=== PATIENT | female | born 1990 | race Caucasian/White ===

== ENCOUNTER 2025-01-25 10:10 | Emergency (ER) | payer BC, SELFPAY ==
[2025-01-25] VITALS (23 sets, daily range): BP systolic 121–150; BP diastolic 75–91; PULSE 64–100; RESP 13–28; TEMP 36.9; O2SAT 97–100
--- NOTE | 2025-01-25 10:00 | RT.EKG_ITS ---
APPROVED REPORT Exam: Resting ECG Reason for Exam: Chest Pain Patient Location: E HR:84 bpm ECG Measurements Heart Rate 84 AXIS VT 163 P 60 QRSd 86 QRS 45 QT 373 T -2 QTc 442 Conclusion Sinus rhythm 84 normal axis no stemi
--- NOTE | 2025-01-25 10:15 | DI.RAD_ITS ---
Exam(s) XR CHEST 2V PA LATERAL EXAM: XR CHEST 2V PA LATERAL CLINICAL HISTORY: Chest pain TECHNIQUE: 2D digital imaging was performed of the chest. Two images were obtained. PA and lateral views were obtained. COMPARISON: No exams were available for comparison FINDINGS: MEDIASTINUM: Normal. HEART: Normal. PULMONARY VASCULATURE: Normal. LUNGS: Clear. PLEURAL SPACE: No pleural effusion or pneumothorax. BONE:Within normal limits for the patient's age. OTHER FINDINGS:Normal. IMPRESSION: No acute pulmonary findings. DATA REPOSITORY: RADIATION DOSE DELIVERED:
[2025-01-25 10:33] LABS: Abs Immature Grans 0.02 10^3/uL (0.0-0.06); Absolute Basophil Count 0.05 10^3/uL (0.0-0.2); Absolute Lymphocyte Count 1.55 10^3/uL (1.2-3.4); Absolute Monocyte Count 0.36 10^3/uL (0.1-0.8); Absolute Neutrophil Count 3.62 10^3/uL (1.2-6.7); Basophils % 0.9 %; Eosinophils % 1.8 %; HCT 45.8 % (36.0-46.0); HGB 15.4 g/dL (11.2-15.7); Immature Grans % 0.4 %; Lymphocytes % 27.2 %; MCH 29.4 pg (27.0-33.0); MCHC 33.6 % (32.0-36.0); MCV 88 fL (80-95); MPV 10.2 fL (8.0-11.0); Monocytes % 6.3 %; Neutrophils % 63.4 %; Platelet Count 348 10^3/uL (130-400); RBC 5.23 10^6/uL (3.93-5.22); RDW 12.2 % (11.7-14.6); RDW-SD 39.4 fL
--- NOTE | 2025-01-25 10:45 | ED.GENADUL_ITS ---
Discharge Plan Disposition Patient Disposition: Home Condition: Stable Discharge Details Clinical Impression: Chest pain of uncertain etiology Primary Care Provider: Emmie Benjamin ED Provider: Miranda Johnson Home Meds and New Rx's Prescriptions: Continued lisinopril 5 mg tablet 5 mg PO DAILY Discharge Instructions Instructions: Costochondritis, Chest Pain, Adult ED Additional Instructions: At this time there is no evidence for cardiac or heart origin for your chest pain. No evidence for blood clots in your lungs. Negative for COVID flu and RSV. No pneumonia on the x-ray. You are very low risk for any heart disease. This may be anxiety or musculoskeletal. Please take Tylenol or Ibuprofen with food every 4-6 hours as needed for pain and swelling. You are given medication called Toradol and a GI cocktail with Maalox and lidocaine in it which caused some numbing sensation. You may also try to take a daily antacid which you can get [id number] to see if this alleviates the pain. Follow up with primary care provider in 3-5 days. Return to ED sooner if any worsening or concerns. Thank you for allowing us to care for you today. Referrals: Primary Care Provider [Outside] - 1 week Discharge Data Discharge Date/Time-TO BE ENTERED AT DEPARTURE: 01/25/25 12:16 HPI General Mode of arrival: ambulatory . Date/Time Provider Initiated Documentation: 01/25/25 10:11 . Limitations to Documentation: no limitations . Information obtained by: patient and RN notes reviewed . HPI Narrative: 34-year-old female presents to the ER with a chief complaint of midsternal chest pain which began around 8:00 this morning has resolved upon arrival. She was seen recently for similar on Monday for some left shoulder pain reports had a negative workup and discharged home. She has had a recent long trip in a car from [place]. Denies any leg swelling, reports mild URI type symptoms with some sinus drainage. Denies any fever but does report chills no significant cough. She is a non-smoker denies any drugs or alcohol. Denies any nausea vomiting diarrhea. Does have a history of hypertension which she takes 5 mg lisinopril for. Family history includes grandparents with heart disease in their 50s. Related Data Home Medications ?Medication ?Instructions ?Recorded ?Confirmed lisinopril 5 mg tablet 5 mg PO DAILY 01/25/25 01/25/25 Allergies Allergy/AdvReac Type Severity Reaction Status Date / Time No Known Allergies Allergy Verified 01/25/25 10:18 General Stated Complaint: Chest Pain WINSTON: 3 Review of Systems All systems reviewed & are unremarkable except as noted in HPI and below ENT Ears, Nose, Mouth, and Throat: Reports as per HPI and Reports nasal congestion Cardiovascular Cardiovascular: Reports as per HPI, Reports chest pain, Reports chest pain at rest, Denies diaphoresis, Denies leg edema, Denies lightheadedness, Denies radiating jaw, neck or arm pain and Denies dyspnea Respiratory Respiratory: Denies dyspnea Gastrointestinal Gastrointestinal: Denies diarrhea, Denies nausea and Denies vomiting Exam Narrative Exam Narrative: Constitutional: Alert and oriented x3. Appears stated age. Normal body habitus. Head: Normocephalic, no trauma. Eyes: Pupils PERRL, Red reflex noted, EOM's intact. Eyelids symmetrical without lesions, discharge, or swelling. ENT: Bilateral TM's WNL, External ear normal to inspection, no mastoid TTP, swelling, or erythema, Nasal turbinates WNL, no nasal discharge. Normal dentition, Posterior pharynx WNL, no exudate. Chest: RRR, Normal S1, S2, distal pulses intact. Resp: Lungs clear to auscultation bilaterally, no wheezes, rales, or rhonchi. Abdomen: Soft, non-distended, Normoactive bowel sounds all 4 quads. Musculoskeletal: Normal gait, Moves all 4 extremities without difficulty. Skin: No suspicious rashes or lesions. Capillary refill less than 2 sec. Neurologic: Cranial nerves II-XII intact. Alert and oriented x 3. Motor: No deficits noted. Sensory: Intact bilaterally all 4 extremities. Hematologic/Lymphatic: No ecchymosis, no lymphadenopathy. Course Vital Signs Vital signs: Vital Signs Temperature 36.9 C 01/25/25 10:13 Pulse 84 01/25/25 10:13 Respiratory Rate 20 01/25/25 10:13 Blood Pressure 136/75 01/25/25 10:13 Pulse Oximetry 98 01/25/25 10:13 Temperature 36.9 C 01/25/25 10:13 Temperature Source Oral 01/25/25 10:13 Pulse 84 01/25/25 10:13 Respiratory Rate 20 01/25/25 10:13 Respiratory Effort Normal, Non-Labored 01/25/25 10:20 Respiratory Pattern Normal 01/25/25 10:20 Blood Pressure 136/75 01/25/25 10:13 Blood Pressure Position Supine 01/25/25 10:13 Pulse Oximetry 98 01/25/25 10:13 Oxygen Delivery Method Room Air 01/25/25 10:13 Oxygen Flow Rate 0 01/25/25 10:13 Pain Level 2 01/25/25 10:13 Medical Decision Making 34-year-old female presents to the ER with a chief complaint of midsternal chest pain which began around 8:00 this morning has resolved upon arrival. She was seen recently for similar on Monday for some left shoulder pain reports had a negative workup and discharged home. She has had a recent long trip in a car from [place]. Denies any leg swelling, reports mild URI type symptoms with some sinus drainage. Denies any fever but does report chills no significant cough. She is a non-smoker denies any drugs or alcohol. Denies any nausea vomiting diarrhea. Does have a history of hypertension which she takes 5 mg lisinopril for. Family history includes grandparents with heart disease in their 50s. EKG was reviewed by Dr. Flores ER attending, normal sinus rhythm, no old EKG available for review. Please see official report. Workup ordered including CBC CMP D-dimer lipase and Fluvid swab, chest x-ray. Patient is very low risk for CAD, differential diagnose includes but limited to PE, URI, anxiety, CAD Workup is largely unremarkable, 2 negative serial troponins, electrolytes within normal limits D-dimer 139 which is within normal limits, lipase 24 negative COVID flu RSV. Chest x-ray shows no acute abnormality. Will give 15 mg of Toradol IV. Also give a GI cocktail and discussed follow-up with patient. Discussed plan of care with patient and follow-up she verbalized understanding. All her questions were answered to the best my ability. Patient remained hemodynamically stable throughout the remainder of her stay alert and oriented x 4. This text was generated using Embedlyation system, please disregard any oddities of phrase or misspellings. Imaging Data Radiologic Study: Imaging: X-Ray Radiologist's impression: COMPARISON: No relevant prior studies available. FINDINGS: Lungs: No focal consolidation seen. Pleural spaces: No large pleural effusion seen. Heart/Mediastinum: No cardiomegaly. Bones/joints: No acute abnormality. IMPRESSION: No acute findings to explain reported symptoms. Thank you for allowing us to participate in the care of your patient. Dictated and Authenticated by: Jess Kirkland MD Lab Data Lab results reviewed: Yes I reviewed the patient's lab results. Labs: Laboratory Tests Range/Units 01/25/25 01/25/25 01/25/25 10:20 10:33 11:20 WBC (4.4-10.8) 10^3/uL 5.70 RBC (3.93-5.22) 10^6/uL 5.23 H Hgb (11.2-15.7) g/dL 15.4 Hct (36.0-46.0) % 45.8 MCV (80-95) fL 88 MCH (27.0-33.0) pg 29.4 MCHC (32.0-36.0) % 33.6 RDW (11.7-14.6) % 12.2 Plt Count (130-400) 10^3/uL 348 MPV (8.0-11.0) fL 10.2 Immature Gran % % 0.4 Neutrophils % % 63.4 Lymphocytes % % 27.2 Monocytes % % 6.3 Eosinophils % % 1.8 Basophils % % 0.9 Nucleated RBC % (0.0-0.3) % 0.0 Absolute Neutrophils (1.2-6.7) 10^3/uL 3.62 Absolute Lymphocytes (1.2-3.4) 10^3/uL 1.55 Absolute Monocytes (0.1-0.8) 10^3/uL 0.36 Absolute Eosinophils (0.0-0.7) 10^3/uL 0.10 Absolute Basophils (0.0-0.2) 10^3/uL 0.05 D-Dimer (<500) ng/mlFEU 139 Sodium (136-145) mmol/L 144 Potassium (3.5-5.1) mmol/L 3.8 Chloride (98-107) mmol/L 107 Carbon Dioxide (21.0-32.0) mmol/L 28.0 Anion Gap (3-11) mmol/L 9.0 BUN (7-18) mg/dL 7 Creatinine (0.55-1.02) mg/dL 0.9 Est GFR (CKD-EPI 2020) (mL/min/1.73m2) 86.03 Glucose (74-106) mg/dL 104 Calcium (8.5-10.1) mg/dL 9.3 Magnesium (1.8-2.4) mg/dL 2.2 Total Bilirubin (0.2-1.0) mg/dL 0.6 AST (15-37) U/L 11 L ALT (14-59) U/L 24 Alkaline Phosphatase (46-116) U/L 75 Troponin I (<or=51) ng/L < 4 < 4 Total Protein (6.4-8.2) g/dL 7.8 Albumin (3.4-5.0) g/dL 4.1 Lipase (<78) U/L 24 COVID-19 Source Nasopharynx SARS-CoV-2 (PCR) (Negative) Negative Influenza Type A (PCR) (Negative) Negative Influenza Type B (PCR) (Negative) Negative RSV (PCR) (Negative) Negative Range/Units 01/25/25 13:25 WBC (4.4-10.8) 10^3/uL RBC (3.93-5.22) 10^6/uL Hgb (11.2-15.7) g/dL Hct (36.0-46.0) % MCV (80-95) fL MCH (27.0-33.0) pg MCHC (32.0-36.0) % RDW (11.7-14.6) % Plt Count (130-400) 10^3/uL MPV (8.0-11.0) fL Immature Gran % % Neutrophils % % Lymphocytes % % Monocytes % % Eosinophils % % Basophils % % Nucleated RBC % (0.0-0.3) % Absolute Neutrophils (1.2-6.7) 10^3/uL Absolute Lymphocytes (1.2-3.4) 10^3/uL Absolute Monocytes (0.1-0.8) 10^3/uL Absolute Eosinophils (0.0-0.7) 10^3/uL Absolute Basophils (0.0-0.2) 10^3/uL D-Dimer (<500) ng/mlFEU Sodium (136-145) mmol/L Potassium (3.5-5.1) mmol/L Chloride (98-107) mmol/L Carbon Dioxide (21.0-32.0) mmol/L Anion Gap (3-11) mmol/L BUN (7-18) mg/dL Creatinine (0.55-1.02) mg/dL Est GFR (CKD-EPI 2020) (mL/min/1.73m2) Glucose (74-106) mg/dL Calcium (8.5-10.1) mg/dL Magnesium (1.8-2.4) mg/dL Total Bilirubin (0.2-1.0) mg/dL AST (15-37) U/L ALT (14-59) U/L Alkaline Phosphatase (46-116) U/L Troponin I (<or=51) ng/L Cancelled Total Protein (6.4-8.2) g/dL Albumin (3.4-5.0) g/dL Lipase (<78) U/L COVID-19 Source SARS-CoV-2 (PCR) (Negative) Influenza Type A (PCR) (Negative) Influenza Type B (PCR) (Negative) RSV (PCR) (Negative) Quality:SDOH Health Related Social Needs: No Data to Display PFSH All Active Problems (Updated 01/25/25 @ 11:57 by Miranda Johnson NP) Chest pain of uncertain etiology (Acute) Social History Smoking risk assessment performed?: No Alcohol Intake: current Alcohol Intake frequency: a few times a week Drug use: Never
[2025-01-25 10:52] LABS: ALT 24 U/L (14-59); AST 11 U/L (15-37); Albumin 4.1 g/dL (3.4-5.0); Alkaline Phosphatase 75 U/L (46-116); BUN 7 mg/dL (7-18); Bilirubin, Total 0.6 mg/dL (0.2-1.0); CREATININE 0.9 mg/dL (0.55-1.02); Calcium 9.3 mg/dL (8.5-10.1); Chloride 107 mmol/L (98-107); Estimated GFR 86.03 (mL/min/1.73m2); Glucose 104 mg/dL (74-106); Lipase 24 U/L (<78); Magnesium 2.2 mg/dL (1.8-2.4); Potassium 3.8 mmol/L (3.5-5.1); Sodium 144 mmol/L (136-145); Total Protein 7.8 g/dL (6.4-8.2)
[2025-01-25 10:54] LABS: Troponin I < 4 ng/L (<or=51)
--- NOTE | 2025-01-25 10:58 | DI.VRAD_ITS ---
PROCEDURE INFORMATION: Exam: XR Chest Exam date and time: 01/25/2025 10:46 AM Age: 34 years old Clinical indication: Chest pressure and sternal or substernal pain TECHNIQUE: Imaging protocol: Radiologic exam of the chest. Views: 2 views. COMPARISON: No relevant prior studies available. FINDINGS: Lungs: No focal consolidation seen. Pleural spaces: No large pleural effusion seen. Heart/Mediastinum: No cardiomegaly. Bones/joints: No acute abnormality. IMPRESSION: No acute findings to explain reported symptoms. Dictated and Authenticated by: Jess Kirkland MD. Orderin Elizabeth Jean MD
[2025-01-25 11:07] LABS: D-Dimer 139 ng/mlFEU (<500)
[2025-01-25 11:13] LABS: COVID-19 PCR Negative (Negative); Influenza A PCR Negative (Negative); Influenza B PCR Negative (Negative); RSV PCR Negative (Negative)
[2025-01-25 11:14] LABS: Source Nasopharynx
[2025-01-25 11:46] LABS: Troponin I < 4 ng/L (<or=51)
[2025-01-25] MEDS: Mylanta Suspension 30 ML CUP PO (12:07)
[2025-01-25] MEDS: Ketorolac 15 MG/ML VIAL IVP (12:07)
[2025-01-25] MEDS: Lidocaine 2% Viscous 15 ML CUP PO (12:07)
== END 2025-01-25 12:16 | disposition home or self-care (01) ==
LOC: ER 12:18
PROVIDERS: Emergency Provider Registered Nurse Emergency; PCP Nurse Practitioner Family
DX: R07.9 Chest pain, unspecified (principal)
CPT/HCPCS: 80053; 83690; 87637; 93005; 96372; 99285; 71046; 83735; 84484; 85025; 85379; 93010; 99284; J1885